=== PATIENT | male | born 1990 | race African-American/Black ===

== ENCOUNTER 2018-11-27 10:22 | Emergency (ER) | payer MEDICAID ==
[~2018-11-27] VITALS: Ht 190.5 cm; Wt 96.2 kg
[~2018-11-27 10:22] MED LIST: ACYCLOVIR400 MG PO; DOXYCYCLINE MO100 MG PO; IBUPROFEN600 MG PO; NKM
[2018-11-27] MEDS ORDERED: NKM (10:30)
--- NOTE | 2018-11-27 10:30 | NUR ---
ED Nurse Note: Patient walked into ED c/o irritation on the penis and reports clear discharge for 2 days. patient denies vomiting, diarrhea and nausea at this time. patient is alert awake x4 ambulatory with steady gait, breathing unlabored and even.
[2018-11-27] MEDS ORDERED: Lidocaine 1% MPF 10mg/ml 5ml INJ ONE (10:45)
[2018-11-27] MEDS ORDERED: Azithromycin 250mg tab ORAL ONE (10:45)
[2018-11-27] MEDS ORDERED: metroNIDAZOLE 500mg tab ORAL ONE (10:45)
[2018-11-27 11:00] VITALS: BP 121/82
[2018-11-27 11:01] VITALS: BP 127/82
--- NOTE | 2018-11-27 11:01 | NUR ---
ER DISCHARGE NOTE: Patient is cleared to be discharged per [facility], pt is aox4, on room air, with stable vital signs. pt was given dc instructions, pt was able to verbalize understanding, pt id band removed without complications. pt is able to ambulate with steady gait. pt took all belongings.
--- NOTE | 2018-11-27 12:53 | Emergency Room Report ---
History of Present Illness General Chief Complaint: Male Urogenital Problems Source: Patient Present Illness HPI Patient presents to the emergency department today complaining of penile discharge. Patient states that he had a sexual encounter without protection and since then has had discharge. He denies any dysuria or urinary frequency. He states that he would like to be treated. He inquired about possible HIV testing. He denies any fever chest pain shortness of breath. No other complaints were noted. Symptoms noted to be moderate. No other modifying factors. No other associated signs and symptoms. No other complaints were noted. Denies any testicular pain testicular swelling or masses. Allergies: Coded Allergies: No Known Allergies (Unverified , 11/27/18) Patient History Past Medical History: none Past Surgical History: none Pertinent Family History: none Social History: Denies: smoking, alcohol use, drug use Reviewed Nursing Documentation: PMH: Agreed; PSxH: Agreed Nursing Documentation-PMH Past Medical History: No Stated History Review of Systems All Other Systems: negative except mentioned in HPI Physical Exam Vital Signs Date Time Temp Pulse Resp B/P (MAP) Pulse Ox O2 Delivery O2 Flow Rate FiO2 11/27/18 10:25 98.2 16 98 Room Air 11/27/18 11:00 68 121/82 Sp02 EP Interpretation: reviewed, normal General Appearance: normal inspection, well appearing, no apparent distress, alert Head: atraumatic Eyes: bilateral eye normal inspection ENT: normal ENT inspection, hearing grossly normal, normal voice Neck: normal inspection, full range of motion, supple, no bony tend Respiratory: normal inspection, lungs clear, normal breath sounds, no respiratory distress, no retraction, no wheezing Cardiovascular #1: regular rate, rhythm, no edema Gastrointestinal: normal inspection, normal bowel sounds, non tender, soft, no guarding, no hernia Genitourinary: no CVA tenderness Musculoskeletal: normal inspection, back normal, normal range of motion Neurologic: normal inspection, alert, responsive, speech normal Psychiatric: normal inspection, judgement/insight normal, mood/affect normal Skin: normal inspection, normal color, no rash Medical Decision Making Diagnostic Impression: Primary Impression: STD (male) ER Course Patient presents emergency department today complaining of penile discharge. Differential considerations include STD, urethritis, urinary incontinence. Patient's exam history consistent with STDs. Had a long discussion with the patient given that the sexual intercourse was about 3 days ago it would be unlikely that he would test positive for HIV at this time. After learning of this patient declined HIV testing. I did offer however to provide HIV testing but he declined. I also offered prophylaxis for HIV exposure. He states that he does not feel that as necessary especially in light of the fact that there would be significant side effects including nausea vomiting abdominal discomfort from the HIV retroviral medication. Patient however did agree to take treatment for STDs. He was given Rocephin Zithromax and Flagyl. He was advised that he could return to emergency department any time to gain further testing and as needed. He voiced understanding. Patient is advised to follow up with primary doctor in 2-3 days and return the emergency room for any worsening symptoms and as needed. Last Vital Signs Date Time Temp Pulse Resp B/P (MAP) Pulse Ox O2 Delivery O2 Flow Rate FiO2 11/27/18 11:01 98.2 16 127/82 98 Room Air 11/27/18 11:00 68 Status: improved Disposition: HOME, SELF-CARE Condition: Stable Referrals: NON PHYSICIAN (PCP) Patient Instructions: Urethritis, Adult, Sexually Transmitted Disease, Easy-to- Read Faraz Maher MD November 27, 2018 12:53
== END 2018-11-27 11:01 | disposition home or self-care (01) ==
LOC: EMR 10:45
DX: A64 Unspecified sexually transmitted disease (principal)
CPT/HCPCS: 96372; 96374; 99284; J0696; Q0144